=== PATIENT | male | born 2000 | race Caucasian/White ===

== ENCOUNTER 2024-02-07 08:37 | Outpatient (AMB) | payer BC, SELFPAY ==
--- NOTE | 2024-02-07 08:41 | MHC.PC.OV ---
Vital Signs 02/07/24 08:47 02/07/24 09:16 Height 6 ft Weight 342 lb 8 oz BMI 46.4 BP 139/83 110/82 Blood Pressure Location Rt brachial Lt brachial Position Sitting Sitting Respiration 16 Pulse 91 Pulse Source Pulse Oximeter Temp 98.1 F Temp Source Oral Intake Visit Reasons: FORENSIC PSYCHIATRIST // Est Care Intake Note: patient here for new patient visit Road Cutter Required: No Allergies No Known Allergies Allergy (Verified 02/07/24 09:11) Medication List - Last Reconciled 02/07/24 by [place] Raymond CNP No Known Home Meds Tobacco use date assessed: 02/07/24 Dental Screening Dental Screen Date: 02/07/24 Did you have a dental visit in the last 12 months?: Yes Did you have a dental problem in the last 6 months where you did not have access to dental care?: No Was dental information given to patient?: Patient has dentist HPI HPI Comments History of Present Illness Details 23-year-old male presents establish care. Prior PCP? - [place], [place] Last office visit - 10/2023 telehealth visit CPE/labs - 2 years ago Acute issue(s) - Reports trouble sleeping and loud snoring for the past 10 years. Never had a sleep study and request one Past Medical History - Morbid obesity Surgical History - [place] teeth extraction Family History - Mom: Alcohol abuse Social History - Nonsmoker. Vapes nicotine daily, and has been vaping for the past 5 years. Drinks 4-6 beers monthly or every other month. Vapes cannabis on weekend - Does not make healthy dietary choices. Exercises 4 times weekly (lifts weights). Trouble staying asleep; sleeps an average of 8 hours nightly but interrupted - Has not been sexually active in the past 1 year and has no concerns for STDs Health maintenance - Last eye exam was over 2 years ago. Referred to Ophthalmology for routine eye exam - Last dental visit was few months ago - Last tetanus vaccine was more than 10 years ago; declines vaccination - Has not been vaccinated for the flu this season; declines vaccination [facility] Surgical History (Updated 02/07/24 @ 08:53 by Debi Wray) [place] teeth extracted Family History (Updated 02/07/24 @ 08:47 by Debi Wray) Mother Alcohol abuse Social History (Updated 02/07/24 @ 08:47 by Debi Wray) Housing: Apartment Patient Tobacco Use Status: Never used Tobacco e-Cigarette/Vaping Use: Currently Using Second Hand Smoke Exposure: No Substance Use Type: Marijuana service: No Current occupational status: student Current occupational exposures/hazards: No Cognitive needs: No Hearing needs: No Vision needs: No Questionnaire PHQ-9 Over the last 2 weeks, how often have you been bothered by any of the following problems? 1. Little interest or pleasure in doing things: not at all 2. Feeling down, depressed, or hopeless: not at all 3. Trouble falling or staying asleep, or sleeping too much: not at all 4. Feeling tired or having little energy: several days 5. Poor appetite or overeating: not at all 6. Feeling bad about yourself - or that you are a failure or have let yourself or your family down: not at all 7. Trouble concentrating on things, such as reading the newspaper or watching television: not at all 8. Moving or speaking so slowly that other people could have noticed. Or the opposite - being so fidgety or restless that you have been moving around a lot more than usual: not at all 9. Thoughts that you would be better off or of hurting yourself in some way: not at all Total score: 1 Depression Screening Interpretation: Negative Depression Screening Done: Yes 08504 - PHQ-9 Billing: Yes Source: Developed by Drs. Raj Neely, Jo Rojas, Juan Carlos Monroy and colleagues, with an educational jie from [employer]. Thrive Questionnaire Date Thrive assessed: 02/07/24 I am a: Patient What is your living situation today?: I have a steady place to live Within the past 12 months, did the food you bought not last and you didn't have the money to get more?: Never true Within the past 12 months, did you worry whether your food would run out before you got money to buy more?: Never true Do you have trouble paying for medicines?: No Do you have trouble getting transportation to medical appointments?: No Do you have trouble paying your heating and electricity bill?: No Do you have trouble taking care of your child, family member or friend?: No Do you have trouble with day-to-day activities such as bathing, preparing meals, shopping, managing finances, etc.?: No Are you currently unemployed and looking for a job?: No Are you interested in more education?: Yes Please select the resources that you would like help with: None Currently or been in a relationship where the following occur: No concerns reported THRIVE Score: 0 AUDIT C Alcohol Use Questionnaire (AUDIT-C) 1. How often do you have a drink containing alcohol?: Monthly or less 2. How many drinks containing alcohol do you have on a typical day when you are drinking?: 1 or 2 3. How often do you have six or more drinks on one occasion?: Less than monthly Total Score: 2 Score Reviewed/Action Taken: Yes JUANA-7 AMB Questionnaire JUANA-7 Date JUANA - 7 assessed: 02/07/24 Feeling nervous, anxious, or on edge: 0 = Not at all Not being able to stop or control worryin = Not at all Worrying too much about different things: 0 = Not at all Trouble relaxin = Not at all Being so restless that it is hard to sit still: 0 = Not at all Becoming easily annoyed or irritable: 0 = Not at all Feeling afraid as if something awful might happen: 0 = Not at all Total JUANA-7 score (0-4 normal; 5-9 mild; 10-14 moderate; 15-21 severe): 0 Source: Developed by Drs. Raj Neely, Jo Rojas, Juan Carlos Monroy and colleagues, with an educational jie from [employer]. JUANA-7 Assessment Billing JUANA-7 Assessment Tool: JUANA-7 Assessment 31509 Review of Systems Const Details: Denies chills, Denies fatigue, Denies fever(s), Denies headache(s) and Denies weakness HEENT Denies change in vision, Denies dizziness, Denies headache(s), Denies hearing loss, Denies nasal congestion, Denies sinus pain, Denies sinus pressure and Denies sore throat Card Denies chest pain, Denies lightheadedness, Denies dyspnea and Denies other (palpitations) Resp Denies cough, Denies dyspnea and Denies wheezing GI Denies abdominal pain, Denies melena, Denies hematochezia, Denies change in bowel habits, Denies dyspepsia and Denies nausea Denies hematuria and Denies dysuria Musc Denies abnormal gait, Denies myalgias, Denies arthralgias, Denies numbness and Denies tingling Skin/Breast Denies rash, Denies unusual bruising and Denies wounds Neuro Denies abnormal gait, Denies dizziness, Denies headache(s), Denies memory loss, Denies numbness, Denies Sensory deficit (Neuro), Denies tingling and Denies weakness Psych Denies anxiety, Denies depression and Denies memory loss Endo Denies cold intolerance, Denies fatigue, Denies heat intolerance, Denies polydipsia and Denies polyuria Cristi/Lymph Denies easy bleeding and Denies easy bruising Aller/Immun Denies wheezing Physical exam (Primary Care) Vital Signs: Last Vital Signs Temp 98.1 F 02/07/24 08:47 Pulse 91 02/07/24 08:47 Resp 16 02/07/24 08:47 BP 110/82 02/07/24 09:16 BMI result Body Mass Index 46.4 Tobacco/Smoking Status: Tobacco use Status Tobacco use date assessed 02/07/24 02/07/24 08:47 Patient Tobacco Use Status Never used Tobacco 02/07/24 08:47 e-Cigarette/Vaping Use Currently Using 02/07/24 08:47 PHQ-9: PHQ-9 Score PHQ-9: Total score 1 02/07/24 09:13 Depression Screening Interpretation: Negative Thrive Assessment: Date of Thrive Assessment Date Thrive assessed 02/07/24 02/07/24 08:43 Currently or been in a relationship where the following occur: No concerns reported Const Other: General: no acute distress, well developed, alert and awake Nutritional Appearance: well nourished Orientation/consciousness: patient oriented x3 HENMT Head: Yes normocephalic and Yes atraumatic Ears: hearing grossly normal bilaterally and TM's normal bilaterally General nose exam: Normal external nose present and Normal nares present Mouth: Normal oral and palatal mucosa present and moist mucous membranes Teeth and gingiva: dentition normal Throat: Yes oropharynx normal Eyes Pupils: Equal, round and reactive pupils present and Pupil accommodation reflex normal EOM: EOMs intact bilaterally Neck Neck: Yes normal visual inspection, Yes no lymphadenopathy and Yes trachea midline Thyroid: Thyroid normal Carotids: no bruits Lymphatic: no lymphadenopathy noted Chest Chest palpation & inspection: normal inspection of the chest Resp Effort & Inspection: normal respiratory effort Auscultation: clear to auscultation bilaterally Cardio Rate: regular rate Rhythm: regular rhythm Heart sounds: S1 normal heart sound present, S2 normal heart sound present, no gallops, no murmurs and no rubs Bruits: no abdominal aortic bruits and no carotid bruits GI Palpation (GI): No Abdominal aortic bruit present, Soft to palpation, nontender, No hepatosplenomegaly present and No Rebound tenderness present Auscultation: normal bowel sounds General: Yes no CVA tenderness Back/Spine/Pelvis Back: no CVA tenderness Cervical Spine: cervical ROM normal and No Cervical spine tenderness Thoracic/Lumbar Spine: thoraco-lumbar ROM normal, No pain with thoraco-lumbar ROM, No thoracic spinal tenderness and No lumbar spinal tenderness Skin General: warm and dry. Normal skin color. Normal skin turgor Lesions: no lesions Rashes: no rashes Trauma: no lacerations or abrasions Wounds: no wounds Nails: normal Neuro General: patient oriented x3, gait normal and CN's II-XI intact bilaterally Cranial nerves: Yes Equal, round and reactive pupils present Cognition (Neuro): normal cognition Gait exam (Neuro): Normal gait present Motor exam (neuro): 5/5 motor strength present throughout Sensory Exam: No Sensory deficit (Neuro) Deep tendon reflexes (DTR's): Right patellar reflex intensity grade: 2+ and Left patellar reflex intensity grade: 2+ Extrem General: Yes normal to inspection, No edema and No calf tenderness Psych Appearance: grossly normal Affect: normal affect Attitude: cooperative Thought process: Normal thought process present Coding Level of Care Code New Pt Prev Care 18-39yr([id number] Diagnoses Normal routine history and physical examination Z00.00 Eye exam, routine Z01.00 Snoring R06.83 Sleep disturbance G47.9 Morbid obesity with BMI of 45.0-49.9, adult E66.01; Z68.42 Engages in vaping Z72.89 Laboratory tests ordered as part of a complete physical exam (CPE) Z00.00 Additional Codes JUANA-7 Assessment Billing - JUANA-7 Assessment Tool: JUANA-7 Assessment 32756 ([id number]) PHQ-9 - 68990 - PHQ-9 Billing: Yes ([id number]) Assessment & Plan Assessment & Plan (1) Normal routine history and physical examination: Code(s): Z00.00 - Encounter for general adult medical examination without abnormal findings Category: Medical Plan: No significant functional limitations noted. Advised to get blood work done and follow-up in 2 weeks for telehealth visit for labs review. Return sooner with symptoms or concerns. Verbalized understanding and agreed with treatment plan. (2) Eye exam, routine: Code(s): Z01.00 - Encounter for examination of eyes and vision without abnormal findings Category: Medical Plan: Last eye exam was over 3 years ago. Referred to Ophthalmology for routine eye exam. (3) Snoring: Code(s): R06.83 - Snoring Category: Medical Plan: Trouble sleeping and loud snoring for the past 10 years. Never had a sleep study. Instructed on sleep hygiene. Healthy lifestyle for weight management encouraged. Referred to [facility] sleep medicine for sleep study as requested. (4) Sleep disturbance: Code(s): G47.9 - Sleep disorder, unspecified Category: Medical Plan: Plan as above. (5) Morbid obesity with BMI of 45.0-49.9, adult: Code(s): E66.01 - Morbid (severe) obesity due to excess calories; Z68.42 - Body mass index [BMI] 45.0-49.9, adult Category: Medical Plan: He currently weighs 342 lb, BMI is 46.4. Declines referral to dietitian/hand cloth cutter or weight management. He will continue to exercise and manages weight. Healthy diet and routine exercise encouraged. Follow-up with PCP as needed. Verbalized understanding and agreed with the plan. (6) Engages in vaping: Code(s): Z72.89 - Other problems related to lifestyle Category: Medical Plan: Instructed on the health risks and complications of vaping and encouraged to quit. Declines treatment for nicotine use at this time and notes that he would consider treatment. Follow-up with PCP as needed. Verbalized understanding and agreed with the plan. (7) Laboratory tests ordered as part of a complete physical exam (CPE): Code(s): Z00.00 - Encounter for general adult medical examination without abnormal findings Category: Medical Plan: Fasting labs ordered as part of a complete physical exam. Advised to fast for at least 10 hours before getting labs drawn. May drink water Verbalized understanding and agreed with treatment plan. Orders: Orders Comprehensive Dresher. Panel Fast Today Z00.00 - Encounter for general adult medical examination without abnormal findings Complete Blood Count Auto Diff Today Z00.00 - Encounter for general adult medical examination without abnormal findings Lipid Panel Today Z00.00 - Encounter for general adult medical examination without abnormal findings TSH reflex Free T4 Today Z00.00 - Encounter for general adult medical examination without abnormal findings UA CC w/rflx Micro + Cult Today Z00.00 - Encounter for general adult medical examination without abnormal findings Referrals Sleep Medicine Referral G47.9 - Sleep disorder, unspecified, R06.83 - Snoring Ophthalmology Referral Z01.00 - Encounter for examination of eyes and vision without abnormal findings
[2024-02-07 08:47] VITALS: BP 139/83; PULSE 91; RESP 16; TEMP 36.7; BMI 46.4
[2024-02-07 09:16] VITALS: BP 110/82
== END 2024-02-07 09:34 | disposition home or self-care (01) ==
PROVIDERS: PCP Nurse Practitioner Family; Visit Provider Nurse Practitioner Family
DX: Z00.00 Encounter for general adult medical examination without abnormal findings (principal); E66.01 Morbid (severe) obesity due to excess calories; Z68.42 Body mass index [BMI] 45.0-49.9, adult; R06.83 Snoring; G47.9 Sleep disorder, unspecified; Z72.89 Other problems related to lifestyle

== ENCOUNTER → 2024-02-07 08:37 | Outpatient (BNVA) | payer BC, SELFPAY | PROVIDERS: PCP Nurse Practitioner Family; Visit Provider Nurse Practitioner Family | DX: Z00.00 Encounter for general adult medical examination without abnormal findings (principal); R06.83 Snoring; G47.9 Sleep disorder, unspecified; E66.01 Morbid (severe) obesity due to excess calories; Z68.42 Body mass index [BMI] 45.0-49.9, adult; Z71.89 Other specified counseling | CPT/HCPCS: 96127 ==

== ENCOUNTER 2024-02-07 09:50 | Outpatient (REF) | payer BC, SELFPAY ==
[2024-02-07 11:44] LABS: Appearance Urine Turbid; Color Urine Dark Yellow; Glucose Urine UA Negative (Negative); Leukocyte Esterase Urine Negative (Negative); Nitrite Urine Negative (Negative); PH 5.5 (5.0-9.0); Specific Gravity - Urine >= 1.030 (1.005-1.025); Urine Blood Negative (Negative); Urine Ketones Negative (Negative); Urine Protein Trace mg/dL (Neg-Trace)
[2024-02-07 11:48] LABS: MANUAL DIFF FLAG NO
[2024-02-07 11:51] LABS: Basophils Absolute Auto 0.1 X10*3/uL (0.0-0.2); Basophils Percent Auto 0.6 % (0-2); Eosinophils Absolute Auto 0.2 X10*3/uL (0.0-0.4); Eosinophils Percent Auto 2.2 % (0-4); Hematocrit 43.6 % (42.0-52.0); Hemoglobin 15.2 g/dl (14.0-18.0); Imm Gran Abs Auto 0.04 X10*3/uL (0.00-0.03); Imm Gran Pct Auto 0.5 % (0.0-0.4); Lymphocytes Absolute Auto 1.6 X10*3/uL (1.2-4.9); Lymphocytes Percent Auto 20.1 % (20-40); Mean Corpuscular HGB Conc 34.9 g/dl (31.0-36.0); Mean Corpuscular Hemoglobin 29.4 pg (27.0-33.0); Mean Corpuscular Volume 84.3 fL (80.0-98.0); Mean Platelet Volume 10.9 fL (9.4-12.4); Monocytes Absolute Auto 0.6 X10*3/uL (0.1-1.2); Monocytes Percent Auto 8.3 % (2-11); Neutrophils Absolute Auto 5.3 x10*3/uL (2.0-8.3); Neutrophils Percent Auto 68.3 % (45-73); Platelet Count 411 X10*3/uL (160-400); Red Blood Count 5.17 X10*6/uL (4.60-5.80); Red Cell Distribution Width 11.9 % (11.0-16.0); White Blood Count 7.7 X10*3/uL (4.8-10.8)
[2024-02-07 12:34] LABS: Alanine Aminotransferase 60 U/L (0-40); Albumin Level 4.5 g/dL (3.5-5.0); Alkaline Phosphatase 54 U/L (39-117); Anion Gap 12 (12-20); Aspartate Amino Transferase 26 U/L (5-37); Bilirubin Total 0.6 mg/dL (0.0-1.0); Blood Urea Nitrogen 12 mg/dL (9-16); Calcium 9.2 mg/dL (8.4-10.2); Carbon Dioxide 27 mmol/L (22-29); Chloride 103 mmol/L (96-108); Cholesterol 212 mg/dL (<200); Estimated Glomerular Filt Rate > 60; Glucose Fasting 100 mg/dL (60-99); HDL Cholesterol 36 mg/dL (>40); LDL Cholesterol Calculated 155 mg/dL (<100); Potassium 3.8 mmol/L (3.3-5.1); Sodium 138 mmol/L (135-145); TSH reflex Free T4 1.63 uIU/mL (0.32-4.0); Total Protein 7.5 g/dL (6.5-8.0); Triglycerides 108 mg/dL (<150)
== END 2024-02-07 09:51 | disposition home or self-care (01) ==
LOC: HO.WFDLDS 09:50
PROVIDERS: Visit Provider Nurse Practitioner Family
DX: Z00.00 Encounter for general adult medical examination without abnormal findings (principal)
CPT/HCPCS: 36415; 80053; 80061; 81003; 84443; 85025

== ENCOUNTER 2024-02-19 12:02 | Outpatient (AMB) | payer BC, SELFPAY ==
--- NOTE | 2024-02-19 11:31 | MHC.PC.OV ---
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 He offers no complaints and denies acute symptoms at this time. [facility] Surgical History (Updated 02/07/24 @ 08:53 by Debi Wray) [place] teeth extracted Family History (Updated 02/07/24 @ 08:47 by Debi Wray) Mother Alcohol abuse Social History (Updated 02/07/24 @ 08:47 by Debi Wray) Housing: Apartment Patient Tobacco Use Status: Never used Tobacco e-Cigarette/Vaping Use: Currently Using Second Hand Smoke Exposure: No Substance Use Type: Marijuana service: No Current occupational status: student Current occupational exposures/hazards: No Cognitive needs: No Hearing needs: No Vision needs: No Questionnaire Thrive Questionnaire Date Thrive assessed: 02/07/24 JUANA-7 AMB Questionnaire JUANA-7 Date JUANA - 7 assessed: 02/07/24 Source: Developed by Drs. Raj Neely, Jo Rojas, Juan Carlos Monroy and colleagues, with an educational jie from [employer]. Review of Systems Const Details: Denies chills, Denies fatigue, Denies fever(s), Denies headache(s) and Denies weakness Cardiac Denies chest pain, Denies claudication, Denies leg edema, Denies lightheadedness, Denies palpitations, Denies dyspnea, Denies dyspnea on exertion, Denies orthopnea and Denies other (Loss of consciousness) Resp Denies cough, Denies excessive phlegm production, Denies dyspnea, Denies dyspnea on exertion, Denies snoring and Denies wheezing Physical exam (Primary Care) Tobacco/Smoking Status: Tobacco use Status Tobacco use date assessed 02/19/24 02/19/24 11:33 Patient Tobacco Use Status Never used Tobacco 02/19/24 11:33 e-Cigarette/Vaping Use Currently Using 02/19/24 11:33 Thrive Assessment: Date of Thrive Assessment Date Thrive assessed 02/07/24 02/19/24 11:33 Const Other: Telehealth visit. No physical exam. Telehealth Telehealth Telehealth Platform: Telephone Location of provider rendering services: practice address Location of patient: address on file Patient Identification confirmed using: Name, : Yes Telehealth method: voice only Patient verbally consented to treatment: Yes Patient verbally consented to billing insurance company: Yes Patient informed of any privacy concerns related to visit: Yes Coding Level of Care Code Tele Est Pt Level 3 (00546) Diagnoses Elevated fasting glucose R73.01 Dyslipidemia E78.5 Elevated ALT measurement R74.01 Thrombocytosis D75.839 Time Spent (min) 15 Assessment & Plan Assessment & Plan (1) Elevated fasting glucose: Code(s): R73.01 - Impaired fasting glucose Category: Medical Plan: Recent fasting glucose is slightly elevated, 100. Will recheck fasting glucose and make changes as needed. Verbalized understanding and agreed with the plan. (2) Dyslipidemia: Code(s): E78.5 - Hyperlipidemia, unspecified Category: Medical Plan: Recent total cholesterol level slightly elevated, 212; LDL level is elevated, 155; HDL level is slightly low, 36. Advised to limit foods high in saturated fat and avoid foods high in trans fat. Routine exercise encouraged. Advised to fast for 10-12 hours, may drink water, and get blood work done 2-3 days before his next visit. Follow-up for telehealth visit in 2 months or return sooner with symptoms or concerns. Verbalized understanding and agreed with treatment plan. (3) Elevated ALT measurement: Code(s): R74.01 - Elevation of levels of liver transaminase levels Category: Medical Plan: Recent ALT level is slightly elevated, 60. Hepatic steatosis is likely. Routine exercise and healthy diet, including low fat encouraged. Will recheck liver panel and make changes as needed. Verbalized understanding and agreed with the plan. (4) Thrombocytosis: Code(s): D75.839 - Thrombocytosis, unspecified Category: Medical Plan: Recent platelet level is slightly elevated, 411. Will recheck and make changes as needed. Orders: Orders Lipid Panel 2 Months E78.5 - Hyperlipidemia, unspecified Liver Panel 2 Months R74.01 - Elevation of levels of liver transaminase levels Glucose Fasting 2 Months R73.01 - Impaired fasting glucose Platelet Count 2 Months D75.839 - Thrombocytosis, unspecified
== END 2024-02-19 12:34 | disposition home or self-care (01) ==
LOC: HO.HMCFM 12:02
PROVIDERS: PCP Nurse Practitioner Family; Visit Provider Nurse Practitioner Family
DX: R73.01 Impaired fasting glucose (principal); E78.5 Hyperlipidemia, unspecified; R74.01 Elevation of levels of liver transaminase levels; D75.839 Thrombocytosis, unspecified

== ENCOUNTER → 2024-02-19 12:02 | Outpatient (BNVA) | payer BC, SELFPAY | PROVIDERS: PCP Nurse Practitioner Family; Visit Provider Nurse Practitioner Family ==

== ENCOUNTER 2024-04-01 13:53 | Outpatient (AMB) | payer BC, SELFPAY ==
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
[2024-04-01 14:04] VITALS: BP 110/80; PULSE 105; O2SAT 96; BMI 45.8
--- OUTSIDE RECORDS SUMMARY | 2024-04-01 14:13 | XMS_ITS | Clinical Summary ---
Author Organization [facility] Address [address] [place] [address] Phone Care Team Providers Care Memorial Marker Designer Name Role Phone Vangie España MD Primary Care Provider [phone] Allergies No known active allergies Medications No known medications Active Problems Problem Noted Date Diagnosed Date Snoring 09/30/2023 BMI 45.0-49.9, adult 09/30/2023 Mixed hyperlipidemia 09/30/2023 CKD stage 3a, GFR 45-59 ml/min 09/30/2023 Immunizations Name Administration Dates Next Due DTaP 12/01/2004, 3,05/05/2001,03/17,01/10/2001 HPV 9-Valent 04/08/2018 Hep A, ped/adol, 2 dose 11/05/2006,11/05/2005 Hib / Hep B 11/06/2001,03/17/2001,01/10/2001 IPV 12/01/2004, 3,03/17/2001,01/10 Influenza, Split (incl. molly fied surface antigen) 11/05/2006,12/01/2004,11/09/2003 Influenza, live, intranasal 12/11/2010, 8 MMR 12/01/2004,11/06/2001 Meningococcal B, Recombinant 03/19/2018 Meningococcal MCV4O 08/20/2013 Novel [id number], nasal 02/19/2009 Pneumococcal Conjugate PCV 7 02/16/2002, 05/05/2001,03/17/2001,01/10 Tdap 08/26/2013 Varicella 11/05/2005,11/06/2001 Family History Medical History Relation Name Comments Coronary artery disease Half-Sibling Sudden Half-Sibling Relation Name Status Comments Father Half-Sibling Mother Social History Tobacco Use Types Packs/Day Years Used Date Smoking Tobacco: Never Smokeless Tobacco: Current Tobacco Cessation:Ready to Q uit: Not Asked; Counseling Given: Not Answered Comments:vape only Alcohol Use Standard Drinks/Week Comments Yes 6 (1 standard drink = 0.6 oz pur e alcohol) PHQ-2 Answer Date Recorded Patient Health Questionnaire-2 Score 0 09/30/2023 Sex and Gender Information Value Date Recorded Sex Assigned at Male 09/11/2023 4:29 PM EDT Legal Sex Male 12:35 PM EDT Gender Identity Male 09/11/2023 4:29 PM EDT Sexual Orientation Not on file Last Filed Vital Signs Vital Sign Reading Time Taken Comments Blood Pressure 130/77 10/03/2022 1:18 PM EDT Pulse 80 10/03/2022 1:18 PM EDT Temperature 36.3 ??C (97.3 ??F) 10/03/2022 1:18 PM ED T Respiratory Rate 18 09/30/2023 10:48 AM EDT Oxygen Saturation - - Inhaled Oxygen Concentration - - Weight 138 kg (305 lb) 09/30/2023 10:48 AM EDT Height 180.3 cm (5' 11 ) 09/30/2023 10:48 AM EDT Body Mass Index 42.54 09/30/2023 10:48 AM EDT Plan of Treatment Health Maintenance Due Date Last Done Comments HIV Screening 2000 HPV Vaccines (2 - Male 3-dose series) 05/06/2018 04/08/2018 Meningococcal B Vaccine (2 of 2 - Trumenba SCDM 2-dose series) 09/16/2018 03/19/2018 Hepatitis C Screening 2018 DTaP/Tdap/Td Vaccines (7 - Td or Tdap) 08/27/2023 08/26/2013, 12/01/2004, 02/16/2002, Additional history exists Influenza Vaccine (#1) 2023 1, 02/19/2009, 11/11/2007, Additional history exists ZZZCOVID-19 Vaccine ( season) 2023 07/05/2020, 06/07/2020 Depression Screening 09/29/2024 09/30/2023 Lipid Panel 10/04/2027 10/03/2022 Zoster Vaccines (1 of 2) 2050 11/05/2005, 10/13 HIB Vaccines Completed 11/06/2001, 05/2001, 01/10/2001 Hepatitis B Vaccines Completed 11/06/2001, 03/17/2001, 01/10/2001 Pneumococcal Vaccine: Pediatrics (0 to 5 Years) and At-Risk Patients (6 to 64 Years) Aged Out 02/16/2002, 05/05/2001, 03/17/2001, Additional history exists No longer eligible based on patient's age to complete this topic IPV Vaccines Completed 12/01/2004, 07/2002, 03/17/2001, Additional history exists Hepatitis A Vaccines Completed 11/05/2006, 11/06/19 Meningococcal Vaccine Aged Out 08/20/2013 No vinay tim eligible based on patient's age to complete this topic RSV Immunization <20 Months Aged Out No longer eligible based on patient's age to complete this topic Rotavirus Vaccines Aged Out No longer eligible based on patient's age to complete this topic Procedures Procedure Name Priority Date/Time Associated Diagnosis Comments CHEMISTRY PROFILE LIPID Routine 10/03/2022 1:49 PM EDT Encounter for routine adult physical exam with abnormal findings BMI 45.0-49.9, adult ([facility]) from Last 3 Months or Most Recently Relevant to Health Maintenance Results * (ABNORMAL) Chemistry Profile Lipid (10/03/2022 1:49 PM EDT) Cholesterol Total 214(H) <=200 mg/dL LAB CHEMISTRY METHOD 10/03/2022 10:[address] [facility] Comment: According to NCEP ATPIII Guidelines, after a 9 to 12 hour fast: ? Less than 200 mg/dL ?Desirable ? 200-239 mg/dL ?Borderline High ? Greater than or equal to 240 mg/dL ? High Triglyceride 222(H) <=149 mg/dL LAB CHEMISTRY METHOD 10/03/2022 10:41 PM EDT [facility] Comment: According to NCEP ATPIII Guidelines, after a 9 to 12 hour fast: Less than 150 mg/dL ?Normal 150-199 mg/dL ?Borderline High 200-499 mg/dL ?High Greater than or equal to 500 mg/dL ? Very High HDL Cholesterol 34 23 - 92 mg/dL LAB CHEMISTRY METHOD 10/03/2022 10:41 PM EDT [facility] Comment: According to NCEP ATPIII Guidelines, after a 9 to 12 hour fast: Less than 40 mg/dL ? Low Greater than or equal to 60 mg/dL ?High HDL Cholesterol >/= 60 mg/dL counts as a negative risk factor: ??Its presence removes one risk factor from the total count. Non-HDL Cholesterol 180(H) <=129 mg/dL LAB CHEMISTRY METHOD 10/03/2022 10:41 PM EDT [facility] Comment: If LDL Goal is: ? Non-HDL Goal should be: < 160 mg/dL ? < 190 mg/dL < 130 mg/dL ? < 160 mg/dL < 100 mg/dL ? < 130 mg/dL < 70 ??mg/dL ? < 100 mg/dL LDL Cholesterol 136(H) <=99 mg/dL LAB CHEMISTRY METHOD 10/03/2022 10:41 PM EDT [facility] Comment: According to NCEP ATPIII Guidelines, after a 9 to 12 hour fast: Less than 100 mg/dL ?Optimal 100-129 mg/dL ?Near Optimal/Above Optimal 130-159 md/dL ?Borderline High 160-189 mg/dL ?High Greater than or equal to 190 mg/dL ?Very High The LDL result included in the lipid profile is a ??calculated LDL which may be invalid when the triglyceride is greater than 400 mg/dL. ??A direct LDL is not affected by triglycerides or fasting state and may be ordered separately. Very Low Density Lipoprotein 44(H) <=29 mg/dL LAB CHEMISTRY METHOD 10/03/2022 10:41 PM EDT [facility] Blood Venous blood specimen / Unknown Venipuncture / Unknown 10/03/2022 1:49 PM EDT 10/03/2022 1:49 PM EDT us Vangie España MD LAB BLOOD ORDERABLES Final Resul t [facility] [address] [place] [address] from Last 3 Months or Most Recently Relevant to Health Maintenance Insurance [facility] Care Teams Memorial Marker Designer Relationship Specialty Start Date End Date Vangie España MD [address] [place] [address] PCP - General Family Medicine 10/03/22
--- OUTSIDE RECORDS SUMMARY | 2024-04-01 14:13 | XMS_ITS | Clinical Summary ---
Author Organization [facility] Address [address] [place] [address] Care Team Providers Care Pier Worker Name Role Phone Michele Capellan MD Primary Care Provider [phone] Allergies No known active allergies Medications fluticasone propionate (FLONASE) 50 mcg/actuation nasal spray 1 spray by Nasal route in the morning. 16 g 12 08/10/2022 Active Active Problems No known active problems Social History Tobacco Use Types Packs/Day Years Used Date Smoking Tobacco: Never Smokeless Tobacco: Never Alcohol Use Standard Drinks/Week Comments No 0 (1 standard drink = 0.6 oz pur e alcohol) Sex and Gender Information Value Date Recorded Sex Assigned at Not on file Legal Sex Male 8:16 AM EST Gender Identity Not on file Sexual Orientation Not on file Last Filed Vital Signs Vital Sign Reading Time Taken Comments Blood Pressure 116/70 08/10/2022 11:05 AM EDT Pulse 109 08/10/2022 11:05 AM EDT Temperature 36.4 ??C (97.6 ??F) 08/10/2022 11:05 AM E DT Respiratory Rate 20 08/10/2022 11:05 AM EDT Oxygen Saturation 98% 08/10/2022 11:05 AM EDT Inhaled Oxygen Concentration - - Weight 123.8 kg (273 lb) 11/25/2018 2:49 PM EDT Height 180.3 cm (5' 11 ) 11/25/2018 2:49 PM EDT Body Mass Index 38.08 11/25/2018 2:49 PM EDT Plan of Treatment Health Maintenance Due Date Last Done Comments Hepatitis C Screening 2000 HPV Vaccine (2 - Male 3-dose series) 05/06/2018 04/08/2018 TdaP/Td Vaccine (2 - Td or Tdap) 08/27/2023 08/26/2013 Influenza Vaccine (#1) 2023 1, 11/11/2007, 11/05/2006, Additional history exists COVID-19 Vaccine (3 - 2023- season) 2023 07/05/2020, 06/07/2020 Hepatitis B Vaccine Completed 11/06/2001, 03/17/2001, 01/10/2001 Hepatitis A Vaccine Completed 11/05/2006, 6 Meningococcal ACWY Vaccine Aged Out 08/20/2013 N o longer eligible based on patient's age to complete this topic Pneumococcal Vaccine 19-49 years At Risk patient Aged Out No longer eligible based on patient's age to complete this topic Insurance [employer] Care Teams Pier Worker Relationship Specialty Start Date End Date Michele Capellan MD [address] [place] [address] PCP - General Pediatrics 12/24/17
== END 2024-04-01 14:38 | disposition home or self-care (01) ==
PROVIDERS: PCP Nurse Practitioner Family; Visit Provider Physician Assistant Medical
DX: R53.83 Other fatigue (principal); G47.9 Sleep disorder, unspecified; J34.1 Cyst and mucocele of nose and nasal sinus; R06.83 Snoring
CPT/HCPCS: 99204

== ENCOUNTER 2024-04-01 13:53 | Outpatient (REF) | payer BC, SELFPAY ==
--- OUTSIDE RECORDS SUMMARY | 2024-04-01 14:44 | XMS_ITS | Clinical Summary ---
Author Organization [facility] Address [address] [place] [address] Care Team Providers Care Quickbooks Bookkeeper Name Role Phone Michele Capellan MD Primary Care Provider [phone] Allergies No known active allergies Medications fluticasone [...] patient's age to complete this topic Insurance [employer] Care Teams Quickbooks Bookkeeper Relationship Specialty Start Date End Date Michele Capellan MD [address] [place] [address] PCP - General Pediatrics 12/24/17
[2024-04-01 18:27] LABS: Hematocrit 45.5 % (42.0-52.0); Hemoglobin 15.9 g/dl (14.0-18.0); Mean Corpuscular HGB Conc 34.9 g/dl (31.0-36.0); Mean Corpuscular Hemoglobin 29.6 pg (27.0-33.0); Mean Corpuscular Volume 84.7 fL (80.0-98.0); Mean Platelet Volume 11.4 fL (9.4-12.4); Platelet Count 460 X10*3/uL (160-400); Red Blood Count 5.37 X10*6/uL (4.60-5.80); Red Cell Distribution Width 12.2 % (11.0-16.0); White Blood Count 10.2 X10*3/uL (4.8-10.8)
[2024-04-01 18:39] LABS: Albumin Level 4.6 g/dL (3.5-5.0); Alkaline Phosphatase 62 U/L (39-117); Anion Gap 13 (12-20); Aspartate Amino Transferase 38 U/L (5-37); Bilirubin Total 0.5 mg/dL (0.0-1.0); Blood Urea Nitrogen 13 mg/dL (9-16); Calcium 9.7 mg/dL (8.4-10.2); Carbon Dioxide 25 mmol/L (22-29); Chloride 103 mmol/L (96-108); Estimated Glomerular Filt Rate > 60; Glucose Random 93 mg/dL (60-115); Iron 74 mcg/dL (45-160); Percent Iron Saturation 28 % (15-50); Potassium 4.2 mmol/L (3.3-5.1); Sodium 137 mmol/L (135-145); Total Iron Binding Capacity 262 mcg/dL (228-428); Total Protein 8.1 g/dL (6.5-8.0); Unsaturated Iron Binding 188 ug/dL
[2024-04-01 18:44] LABS: Alanine Aminotransferase 54 U/L (0-40)
[2024-04-01 18:56] LABS: Ferritin 383 ng/mL (20-250); TSH reflex Free T4 1.84 uIU/mL (0.32-4.0); Vitamin D 25-OH Total 23.7 ng/mL (>30)
[2024-04-01 19:31] LABS: Folate 6.5 ng/mL (> or = 4.0); Vitamin B12 295 pg/mL (200-900)
[2024-04-04 06:12] LABS: Methylmalonic Acid 101 nmol/L (55-335)
== END 2024-04-01 13:54 | disposition home or self-care (01) ==
LOC: HO.HKASLDS 13:53
PROVIDERS: PCP Nurse Practitioner Family; Visit Provider Physician Assistant Medical
DX: R53.83 Other fatigue (principal); G47.9 Sleep disorder, unspecified; R06.83 Snoring; J34.1 Cyst and mucocele of nose and nasal sinus
CPT/HCPCS: 36415; 80053; 82306; 82607; 82728; 82746; 83540; 83921; 84443; 85027

== ENCOUNTER 2024-04-02 12:30 | Outpatient (REF) | payer BC, SELFPAY ==
--- OUTSIDE RECORDS SUMMARY | 2024-04-02 13:27 | XMS_ITS | Clinical Summary ---
Author Organization [facility] Address [address] [place] [address] Care Team Providers Care Ornament Maker Hand Name Role Phone Michele Capellan MD Primary Care Provider [phone] Allergies No known active allergies Medications fluticasone [...] patient's age to complete this topic Insurance [employer] [employer] Care Teams Ornament Maker Hand Relationship Specialty Start Date End Date Michele Capellan MD [address] [place] [address] PCP - General Pediatrics 12/24/17
--- OUTSIDE RECORDS SUMMARY | 2024-04-02 13:27 | XMS_ITS | Clinical Summary ---
Author Organization [facility] Address [address] [place] [address] Phone Care Team Providers Care Facility Technician Name Role Phone Vangie España MD Primary Care Provider [phone] Allergies No known active allergies Medications No [...] B, Recombinant 03/19/2018 Meningococcal MCV4O 08/20/2013 Novel [id number], nasal 02/19/2009 Pneumococcal Conjugate PCV 7 02/16/2002, [...] exam with abnormal findings BMI 45.0-49.9, adult ([facility]) from Last 3 Months or Most Recently Relevant to Health Maintenance Results * (ABNORMAL) Chemistry Profile Lipid (10/03/2022 1:49 PM EDT) Cholesterol Total 214(H) <=200 mg/dL LAB CHEMISTRY METHOD 10/03/2022 10:41 PM EDT [facility] Comment: According to NCEP ATPIII Guidelines, after a 9 to 12 hour fast: ? Less than 200 mg/dL ?Desirable ? 200-239 mg/dL ?Borderline High ? Greater than or equal to 240 mg/dL ? High Triglyceride 222(H) <=149 mg/dL LAB CHEMISTRY METHOD 10/03/2022 10:41 PM EDT [facility] Comment: According to NCEP ATPIII Guidelines, after a 9 to 12 hour fast: Less than 150 mg/dL ?Normal 150-199 mg/dL ?Borderline High 200-499 mg/dL ?High Greater than or equal to 500 mg/dL ? Very High HDL Cholesterol 34 23 - 92 mg/dL LAB CHEMISTRY METHOD 10/03/2022 10:41 PM EDT [facility] Comment: According to [...] LAB CHEMISTRY METHOD 10/03/2022 10:41 PM EDT [facility] Comment: If LDL Goal is: ? Non-HDL Goal should be: < 160 mg/dL ? < 190 mg/dL < 130 mg/dL ? < 160 mg/dL < 100 mg/dL ? < 130 mg/dL < 70 ??mg/dL ? < 100 mg/dL LDL Cholesterol 136(H) <=99 mg/dL LAB CHEMISTRY METHOD 10/03/2022 10:41 PM EDT [facility] Comment: According to [...] LAB CHEMISTRY METHOD 10/03/2022 10:41 PM EDT [facility] Blood Venous blood specimen / Unknown Venipuncture / Unknown 10/03/2022 1:49 PM EDT 10/03/2022 1:49 PM EDT us Vangie España MD LAB BLOOD ORDERABLES Final Resul t [facility] [address] [place] [address] from Last 3 Months or Most Recently Relevant to Health Maintenance Insurance [facility] Care Teams Facility Technician Relationship Specialty Start Date End Date Vangie España MD [address] [place] [address] PCP - General Family Medicine 10/03/22
[2024-04-03 18:13] LABS: Homocysteine 12.5 umol/L (<11.4)
== END 2024-04-02 12:31 | disposition home or self-care (01) ==
LOC: HO.LAB 12:30
PROVIDERS: PCP Nurse Practitioner Family; Visit Provider Physician Assistant Medical
DX: G47.9 Sleep disorder, unspecified (principal); R53.83 Other fatigue
CPT/HCPCS: 36415; 83090